=== PATIENT | female | born 1965 | race Caucasian/White ===

== ENCOUNTER 2017-08-05 14:30 | Emergency (ER) | payer MEDICAID, OTHER ==
[~2017-08-05] VITALS: Ht 162.6 cm; Wt 61.0 kg
[~2017-08-05 14:30] MED LIST: GABA300C10 PO; MULT-6 PO; NAPR500T4 PO; RANI150T4 PO; TIZA4TAB PO; TRAM50TA2 PO
[2017-08-05 14:38] VITALS: BP 142/99
[2017-08-05 15:53] LABS: HEMATOCRIT 41.1 % (34.6-47.8); HEMOGLOBIN 14.3 g/dL (11.7-16.4); WHITE BLOOD COUNT 6.5 x10^3/uL (3.4-10)
[2017-08-05 16:03] LABS: BLOOD UREA NITROGEN 11 mg/dL (7-18)
[2017-08-05 16:07] LABS: IS PT STATUS REG ER OR PRE ER? YES
== END 2017-08-05 17:02 | disposition home or self-care (01) ==
LOC: ED 16:55
DX: R10.13 Epigastric pain (principal); R11.2 Nausea with vomiting, unspecified; R53.1 Weakness; K21.9 Gastro-esophageal reflux disease without esophagitis; I10 Essential (primary) hypertension
CPT/HCPCS: 36415; 71010; 80048; 81003; 82040; 84484; 85025; 93005; 99285